=== PATIENT | female | born 1950 | race Caucasian/White ===

== ENCOUNTER 2019-07-24 22:16 | Inpatient (IN) | payer MEDICARE, OTHER ==
[~2019-07-24] VITALS: Ht 157.5 cm; Wt 105.5 kg
[~2019-07-24 22:16] MED LIST: ASPIR 8181 MG PO; ASPIRIN EC81 M1 PO; ATENOLOL 100MG100 MG PO; BENZONATATE100 MG PO; BIO CLEANSE PO; CEFDINIR300 MG PO; CENTRUM SILVER1 EAC4 PO; CHLORTHALIDONE25 MG PO; CLARITIN10 MG PO; COLACE100 MG PO; COREG6.25 MG PO; CRESTOR20 MG PO; KEFLEX500 M1 PO; LIPITOR 20 MG T20 M1 PO; LIPITOR10 MG PO; LISINOPRIL20 MG PO; LISINOPRIL40 MG PO; MACROBID 100 M100 M1 PO; MUCINEX TA600 MG/TA2 PO; MUCINEX1200 MG PO; NORVASC10 MG PO; NORVASC5 MG PO; ONDANSETRON HCL4 M2 PO; PEPCID20 MG PO; PLAVIX 75 MG TA75 M1 PO; PREDNISONE 10 M10 MG PO; PREDNISONE 20 M20 MG PO; PREDNISONE 5 MG5 M1 PO; PRILOSEC 20 MG20 MG PO; PROAIR HFA8.5 GM INH; PROBIOTIC1 EAC1 PO; PROBIOTIC1 EAC3 PO; PROTONIX40 M1 PO; SYSTANE 0.3-0.1 EACH OPHTHALMIC; TYLENOL325 MG PO; UNICOMPLEX M TA1 TA1 PO; VENTOLIN HFA 1818 GM INH; VITAMIN D-32000 UNIT PO; XANAX 0.25 MG0.25 MG PO; ZESTORETIC 20-1 EAC1 PO; ZPAK PO
[2019-07-24 22:24] VITALS: BP 119/49
[2019-07-24] MEDS ORDERED: ALLOPURINOL 30300 M1 PO (22:30)
[2019-07-24 23:18] LABS: BE -7.6 mmol/L (-2 to +3); PCO2 34.4 mmHg (35.0-45.0); PO2 84.7 mmHg (75.0-100.0); pH 7.324 (7.340-7.450)
[2019-07-24 23:20] LABS: ABSOLUTE BASOPHILS 0.1 thou/uL (0.0-0.2); ABSOLUTE EOSINOPHILS 0.4 thou/uL (0.0-0.7); ABSOLUTE LYMPHOCYTES 3.3 thou/uL (0.8-5.3); ABSOLUTE MONOCYTES 0.8 thou/uL (0.0-1.2); ABSOLUTE NEUTROPHILS 5.4 thou/uL (1.6-8.1); BASOPHILS 0.8 %; EOSINOPHILS 4.3 %; HEMATOCRIT 38.7 % (37.0-47.0); MCH 28.5 pg (26.0-34.0); MCHC 33.4 g/dL (28.0-37.0); MCV 85.1 fL (80.0-100.0); MPV 10.7 fl. (7.2-11.1); NUCLEATED RBCS 0 /100WBC; PLATELET COUNT* 216 thou/uL (150-400); POLYS 53.9 %; RBC 4.55 mil/uL (4.20-5.00); RDW-CV 16.9 % (10.5-14.5); WBC 9.9 thou/uL (4.0-11.0)
[2019-07-24 23:22] LABS: ANION GAP 15 mmol/L (7-16); BUN 33 mg/dL (7-18); CALCIUM 8.3 mg/dL (8.5-10.1); CHLORIDE 106 mmol/L (98-107); CO2 20 mmol/L (21-32); GLUCOSE 117 mg/dL (70-99); SODIUM 141 mmol/L (136-145)
[2019-07-24 23:23] LABS: INR 1.1; POTASSIUM 2.5 mmol/L (3.5-5.1); PROTIME 11.4 Seconds (9.20-11.50)
[2019-07-24 23:31] LABS: ALBUMIN 3.5 g/dL (3.4-5.0); ALKALINE PHOSPHATASE 114 U/L (46-116); SGOT 48 U/L (15-37); SGPT 77 U/L (30-65); TOTAL BILIRUBIN 0.6 mg/dL (<0.1-1.0); TOTAL PROTEIN 5.8 g/dL (6.4-8.2); TROPONIN-I LEVEL <0.06 ng/mL (<0.06)
[2019-07-24 23:36] LABS: MAGNESIUM 0.7 mg/dL (1.8-2.4)
--- NOTE | 2019-07-25 00:15 | NUR ---
RECIEVED REPORT AND ASSUMED CARE OF PT.
--- NOTE | 2019-07-25 02:20 | NUR ---
REPORT GIVEN TO HERACLIO MONTERO. PT BEING ADMITTED TO ROOM 204
[2019-07-25 02:22] VITALS: BP 102/50
[2019-07-25 04:00] VITALS: BP 91/43
--- NOTE | 2019-07-25 06:49 | NUR ---
PT ARRIVED FROM ER AROUND 0230. ASSESSMENT COMPLETED CHARTED. ABLE TO MAKE NEEDS KNOWN. UP WITH 1 AND CANE TO BATHROOM. ON ISOLATION FOR RECENT CDIFF. C/O CIATICA NERVE PAIN AND GAVE PRN PAIN MEDS. NO SKIN ISSUES NOTED. MEDS RECONSILED. IV FLUIDS RUNNING PER EMAR. WILL CONTINUE TO MONITOR.
[2019-07-25 08:50] VITALS: BP 131/43
--- NOTE | 2019-07-25 08:50 | NUR ---
PATIENT A/O X 4 THIS AM. PATIENT STATES SCIATIC NERVE PAIN IS SLIGHTLY IMPROVED THAN FIRST ADMITTED. 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 IV FLUIDS INFUSING ORDERED. FALL PRECAUTIONS IN PLACE. CALL LIGHT WITHIN REACH. WILL CONTINUE WITH PLAN OF CARE.
[2019-07-25 09:37] LABS: ABSOLUTE BASOPHILS 0.1 thou/uL (0.0-0.2); ABSOLUTE EOSINOPHILS 0.5 thou/uL (0.0-0.7); ABSOLUTE LYMPHOCYTES 3.6 thou/uL (0.8-5.3); ABSOLUTE MONOCYTES 0.8 thou/uL (0.0-1.2); ABSOLUTE NEUTROPHILS 4.7 thou/uL (1.6-8.1); BASOPHILS 0.7 %; EOSINOPHILS 5.1 %; HEMATOCRIT 38.2 % (37.0-47.0); HEMOGLOBIN 12.5 gm/dL (12.0-15.0); LYMPHOCYTES 37.4 %; MCH 28.2 pg (26.0-34.0); MCHC 32.7 g/dL (28.0-37.0); MCV 86.3 fL (80.0-100.0); MONOCYTES 8.3 %; MPV 11.7 fl. (7.2-11.1); NUCLEATED RBCS 0 /100WBC; PLATELET COUNT* 215 thou/uL (150-400); POLYS 48.5 %; RBC 4.43 mil/uL (4.20-5.00); RDW-CV 17.4 % (10.5-14.5); WBC 9.8 thou/uL (4.0-11.0)
[2019-07-25 09:45] LABS: ALBUMIN 3.2 g/dL (3.4-5.0); CREATININE 2.1 mg/dL (0.6-1.3); PHOSPHORUS* 3.8 mg/dL (2.5-4.9); POTASSIUM 3.2 mmol/L (3.5-5.1)
[2019-07-25 09:49] LABS: MAGNESIUM 0.9 mg/dL (1.8-2.4)
[2019-07-25 10:43] LABS: URINE BLOOD 2+ (Negative); URINE CLARITY CLEAR; URINE COLOR YELLOW; URINE GLUCOSE-RANDOM NEGATIVE (Negative); URINE KETONES NEGATIVE (Negative); URINE NITRITE-REFLEX NEGATIVE (Negative); URINE PROTEIN 1+ (Negative); URINE UROBILINOGEN 0.2 E.U./dl (0.2-1.0)
[2019-07-25 10:44] LABS: ICTOTEST (BILI CONFIRMATORY) Negative (Negative); URINE BILIRUBIN 1+ (Negative); URINE LEUKOCYTES-REFLEX 3+ (Negative)
[2019-07-25 10:49] LABS: BACTERIA-REFLEX >30 Many /HPF (None Seen); CRYSTALS None Seen /LPF (None Seen); HYALINE CASTS 0-3 Few /LPF (None Seen); MUCUS 0-3 Light strn/LPF (None Seen); SQUAMOUS 0-3 Few /LPF (0-3); URINE RBC 3-10 Few /HPF (0-2); URINE WBC-REFLEX >25 Many /HPF (0-5)
[2019-07-25 12:18] VITALS: BP 113/41
[2019-07-25 16:27] VITALS: BP 151/55
--- NOTE | 2019-07-25 18:41 | NUR ---
PATIENT HAS BEEN A/O X 4 THIS SHIFT. 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 IV FLUIDS CHANGED THIS SHIFT. IV PATENT, MAGNESIUM REPLACED PER ORDERS. PATIENT TOLERATING HEART HEALTHY DIET. PATIENT UP WITH SBA WITH CANE TO BR. UA SENT ORDERED, ORDERS RECEIVED TO SEND STOOL FOR STUDIES, PATIENT INFORMED. BP IMPROVED FROM ADMIT. LIDOCAINE PATCH ORDERED FOR SCIATIC NERVE PAIN. REMAINS IN SPECIAL CONTACT FOR HX OF CDIFF. HOURLY ROUNDING COMPLETED. CALL LIGHT WITHIN REACH. WILL CONTINUE WITH PLAN OF CARE.
[2019-07-25 20:00] VITALS: BP 133/54
[2019-07-26] VITALS: BP 134/57
[2019-07-26 03:45] VITALS: BP 112/38
[2019-07-26 05:11] LABS: CALCIUM 8.1 mg/dL (8.5-10.1); CREATININE 1.6 mg/dL (0.6-1.3); MAGNESIUM 2.2 mg/dL (1.8-2.4); POTASSIUM 3.9 mmol/L (3.5-5.1)
--- NOTE | 2019-07-26 05:20 | NUR ---
PT REPORTED AT BEGINNING OF SHIFT THAT SCIATIC PAIN WAS IMPROVING. AT 0300 ROUNDING PT REPORTED BLE PAIN R/T GOUT. PT GIVEN TRAMADOL AND UPON REASSESSMENT PT REPORTED PAIN 5/10. PT IS RESTING AT THIS TIME. CALL LIGHT WITH REACH
--- NOTE | 2019-07-26 07:35 | EKG ---
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 : 1950 Requested By: Cherry Friend Order Number: [id number] MD: Ki Jeffers Measurements Intervals [place] Rate: 71 P: 70 CT: 206 QRS: 16 QRSD: 111 T: -36 QT: 430 QTc: 468 Interpretive Statements Sinus rhythm LVH with IVCD and secondary repol abnrm Inferior infarct, age indeterminate No previous ECG available for comparison Electronically Signed On 07-26-2019 7:34:48 CDT by Ki Jeffers [email or web address] <ELECTRONICALLY SIGNED> By: Ki Jeffers MD, [facility] 07/26/19 0734 33 33 Ki Jeffers MD, [facility] /EPI
[2019-07-26 08:00] VITALS: BP 153/76
[2019-07-26 12:20] VITALS: BP 131/46
[2019-07-26 16:16] VITALS: BP 139/46
--- NOTE | 2019-07-26 16:32 | NUR ---
PT UP IN ROOM AND TO BR WITH SB ASSIST AND CANE. IVF INFUSING. NSR ON MONITOR. TOLERATING PO WELL
[2019-07-26 20:00] VITALS: BP 157/54
[2019-07-27] VITALS: BP 144/55
[2019-07-27 04:00] VITALS: BP 167/64
[2019-07-27 04:34] LABS: CALCIUM 8.6 mg/dL (8.5-10.1); CREATININE 1.2 mg/dL (0.6-1.3); POTASSIUM 3.8 mmol/L (3.5-5.1)
--- NOTE | 2019-07-27 06:13 | NUR ---
PT HAS RESTED T/O NIGHT WITH NO CO PAIN OR SOA. PT HAS STILL NOT HAD A BM,SPECIMEN REMAINS UNCOLLECTED. IV TO LEFT HAND INFUSING 1/2 NS AT 75. NOTHING FURTHER AT THIS TIME. CALL LIGHT WITHIN REACH.
[2019-07-27 09:33] VITALS: BP 194/62
--- NOTE | 2019-07-27 10:24 | NUR ---
cm completed intial assessment. pt alert &oriented x 4. pt lives at home alone. independent w/cares. drives. employeed. dtr provides needed support. pt has cane and walker (PRN). pt has w/[facility] acute rehab and HH w/[facility]. pt would like to use [facility] if it is determined pt w/need HH services. cm to cont to remain avialable to assist as needed.
[2019-07-27] MEDS ORDERED: CIPRO500 MG PO (11:10)
[2019-07-27] MEDS ORDERED: PREDNISONE 20 M20 MG PO (11:11)
[2019-07-27] MEDS ORDERED: LISINOPRIL40 MG PO (11:11)
[2019-07-27] MEDS ORDERED: PEPCID20 MG PO (11:12)
[2019-07-27 11:28] VITALS: BP 194/62
[2019-07-27 11:46] VITALS: BP 158/59
--- NOTE | 2019-07-27 13:26 | NUR ---
Nutrition: Consult for wt change. Pt stated she usually weighs 219# now. She has lost ~50# in past two months d/t a c. diff infection. She stated she feels she is not losing wt anymore. She takes vitamin D, MVI, probiotic. 100% of lunch eaten. She stated she has a good appetite. Plan to discharge today. Mild risk.
--- NOTE | 2019-07-27 14:17 | NUR ---
PATIENT DISCHARGED TO HOME WITH HH AT THIS TIME. IV DC'D. PATIENT VERBALIZES UNDERSTANDING OF PAPERWORK AND SCRIPTS. PATIENT TAKEN OUT VIA WHEELCHAIR WITH ALL BELONGINGS.
[2019-07-28 03:07] LABS: GLYCOHEMOGLOBIN (HGB A1C) 5.7 % (4.8-5.6)
== END 2019-07-27 14:24 | disposition home health service (06) | DRG 683 ==
LOC: M.ERS 22:16 → M.2W 07-25 00:14 → M.TBA-ER 07-25 00:14 → M.2W 07-25 02:04
PROVIDERS: Personal Emergency Response Attendant; ADMIT Family Medicine
DX: N17.9 Acute kidney failure, unspecified (principal); Z68.41 Body mass index [BMI] 40.0-44.9, adult; N39.0 Urinary tract infection, site not specified; I12.9 Hypertensive chronic kidney disease with stage 1 through stage 4 chronic kidney disease, or unspecified chronic kidney disease; Z96.1 Presence of intraocular lens; E78.00 Pure hypercholesterolemia, unspecified; I73.9 Peripheral vascular disease, unspecified; E78.5 Hyperlipidemia, unspecified; E86.0 Dehydration; N18.3 Chronic kidney disease, stage 3 (moderate); I25.10 Atherosclerotic heart disease of native coronary artery without angina pectoris; M54.30 Sciatica, unspecified side; E87.6 Hypokalemia; M10.9 Gout, unspecified; E83.42 Hypomagnesemia; F41.9 Anxiety disorder, unspecified; E66.9 Obesity, unspecified; K21.9 Gastro-esophageal reflux disease without esophagitis; I25.2 Old myocardial infarction; Z95.1 Presence of aortocoronary bypass graft; Z86.73 Personal history of transient ischemic attack (TIA), and cerebral infarction without residual deficits; Z79.82 Long term (current) use of aspirin; Z88.0 Allergy status to penicillin; Z88.8 Allergy status to other drugs, medicaments and biological substances; Z88.1 Allergy status to other antibiotic agents; Z79.899 Other long term (current) drug therapy

== ENCOUNTER 2019-08-04 14:29 | Emergency (ER) | payer MEDICARE, OTHER ==
[~2019-08-04] VITALS: Ht 157.5 cm; Wt 98.9 kg
[~2019-08-04 14:29] MED LIST changes: +ALLOPURINOL 30300 M1 PO; +CIPRO500 MG PO
[2019-08-04 15:03] LABS: ABSOLUTE EOSINOPHILS 0.5 thou/uL (0.0-0.7); ABSOLUTE LYMPHOCYTES 3.7 thou/uL (0.8-5.3); ABSOLUTE NEUTROPHILS 7.2 thou/uL (1.6-8.1); BASOPHILS 0.3 %; EOSINOPHILS 3.7 %; HEMATOCRIT 39.2 % (37.0-47.0); HEMOGLOBIN 12.7 gm/dL (12.0-15.0); LYMPHOCYTES 29.8 %; MCH 28.3 pg (26.0-34.0); MCHC 32.5 g/dL (28.0-37.0); MCV 87.1 fL (80.0-100.0); MONOCYTES 8.1 %; MPV 9.3 fl. (7.2-11.1); NUCLEATED RBCS 0 /100WBC; PLATELET COUNT* 248 thou/uL (150-400); POLYS 58.1 %; RDW-CV 18.4 % (10.5-14.5); WBC 12.5 thou/uL (4.0-11.0)
[2019-08-04 15:06] LABS: ANION GAP 5 mmol/L (7-16); BUN 17 mg/dL (7-18); CALCIUM 8.9 mg/dL (8.5-10.1); CHLORIDE 103 mmol/L (98-107); CO2 32 mmol/L (21-32); CREATININE 0.9 mg/dL (0.6-1.3); GLUCOSE 87 mg/dL (70-99); POTASSIUM 4.1 mmol/L (3.5-5.1); SODIUM 140 mmol/L (136-145)
[2019-08-04 15:16] LABS: ALBUMIN 2.9 g/dL (3.4-5.0); ALKALINE PHOSPHATASE 89 U/L (46-116); NT-PRO BRAIN NAT PEPTIDE 3931 pg/mL (<300); SGOT 17 U/L (15-37); SGPT 51 U/L (30-65); TOTAL PROTEIN 5.3 g/dL (6.4-8.2); TROPONIN-I LEVEL <0.06 ng/mL (<0.06)
[2019-08-04 15:43] LABS: URINE BILIRUBIN NEGATIVE (Negative); URINE BLOOD NEGATIVE (Negative); URINE CLARITY CLEAR; URINE COLOR YELLOW; URINE GLUCOSE-RANDOM NEGATIVE (Negative); URINE KETONES NEGATIVE (Negative); URINE LEUKOCYTES-REFLEX NEGATIVE (Negative); URINE NITRITE-REFLEX NEGATIVE (Negative); URINE PROTEIN NEGATIVE (Negative); URINE SPECIFIC GRAVITY <= 1.005 (1.005-1.030); URINE UROBILINOGEN 0.2 E.U./dl (0.2-1.0)
[2019-08-04] MEDS ORDERED: LASIX 20 MG TAB20 MG PO (16:04)
[2019-08-04 16:18] VITALS: BP 174/52
== END 2019-08-04 16:18 | disposition home or self-care (01) ==
LOC: M.ERS 14:29
PROVIDERS: Physician Assistant
DX: I11.0 Hypertensive heart disease with heart failure (principal); I50.9 Heart failure, unspecified; R60.0 Localized edema; E78.00 Pure hypercholesterolemia, unspecified; I25.2 Old myocardial infarction; F41.9 Anxiety disorder, unspecified; K21.9 Gastro-esophageal reflux disease without esophagitis; Z86.73 Personal history of transient ischemic attack (TIA), and cerebral infarction without residual deficits; Z98.890 Other specified postprocedural states; Z95.1 Presence of aortocoronary bypass graft; Z88.1 Allergy status to other antibiotic agents; Z88.0 Allergy status to penicillin; Z88.5 Allergy status to narcotic agent; Z87.891 Personal history of nicotine dependence

== ENCOUNTER 2019-08-20 17:18 | Emergency (ER) | payer MEDICARE, OTHER ==
[~2019-08-20] VITALS: Ht 157.5 cm; Wt 98.9 kg
[~2019-08-20 17:18] MED LIST changes: +LASIX 20 MG TAB20 MG PO
[2019-08-20] MEDS ORDERED: MAGOX 400400 MG PO (17:32)
[2019-08-20] MEDS ORDERED: POTASSIUM20 PO (17:32)
[2019-08-20] MEDS ORDERED: GABAPENTIN 100100 MG PO (17:48)
[2019-08-20] MEDS ORDERED: TRAMADOL 50 MG50 MG PO (17:48)
[2019-08-20 18:00] VITALS: BP 125/80
== END 2019-08-20 18:01 | disposition home or self-care (01) ==
LOC: M.ERS 17:18
DX: G62.9 Polyneuropathy, unspecified (principal); I10 Essential (primary) hypertension; I73.9 Peripheral vascular disease, unspecified; E78.00 Pure hypercholesterolemia, unspecified; K21.9 Gastro-esophageal reflux disease without esophagitis; F41.9 Anxiety disorder, unspecified; Z86.73 Personal history of transient ischemic attack (TIA), and cerebral infarction without residual deficits; Z88.0 Allergy status to penicillin; Z88.6 Allergy status to analgesic agent; Z88.1 Allergy status to other antibiotic agents; Z87.891 Personal history of nicotine dependence

== ENCOUNTER 2019-08-25 22:08 | Inpatient (IN) | payer MEDICARE, OTHER ==
[~2019-08-25] VITALS: Ht 157.5 cm; Wt 100.2 kg
[~2019-08-25 22:08] MED LIST changes: +GABAPENTIN 100100 MG PO; +MAGOX 400400 MG PO; +POTASSIUM20 PO; +TRAMADOL 50 MG50 MG PO
[2019-08-25 22:19] VITALS: BP 148/51
[2019-08-25 22:58] LABS: HEMATOCRIT 37.2 % (37.0-47.0); HEMOGLOBIN 12.4 gm/dL (12.0-15.0); MCH 28.9 pg (26.0-34.0); MCHC 33.3 g/dL (28.0-37.0); MCV 86.8 fL (80.0-100.0); MPV 8.9 fl. (7.2-11.1); NUCLEATED RBCS 0 /100WBC; PLATELET COUNT* 384 thou/uL (150-400); RBC 4.29 mil/uL (4.20-5.00); RDW-CV 18.8 % (10.5-14.5); WBC 14.4 thou/uL (4.0-11.0)
[2019-08-25 23:06] LABS: ANION GAP 9 mmol/L (7-16); BUN 41 mg/dL (7-18); CALCIUM 9.5 mg/dL (8.5-10.1); CHLORIDE 94 mmol/L (98-107); CO2 31 mmol/L (21-32); CREATININE 2.4 mg/dL (0.6-1.3); GLUCOSE 143 mg/dL (70-99); POTASSIUM 4.1 mmol/L (3.5-5.1); SODIUM 134 mmol/L (136-145)
--- NOTE | 2019-08-25 23:16 | NUR ---
PT VERBALIZES UNDERSTANDING OF PRESCRIPTIONS AND DISCHARGE INSTRUCTIONS. PT DISCHARGED TO HOME IN STABLE CONDITION WITH DRIVING.
[2019-08-25 23:18] LABS: ALBUMIN 3.1 g/dL (3.4-5.0); ALKALINE PHOSPHATASE 161 U/L (46-116); NT-PRO BRAIN NAT PEPTIDE 3453 pg/mL (<300); SGOT 16 U/L (15-37); SGPT 27 U/L (30-65); TOTAL BILIRUBIN 0.5 mg/dL (<0.1-1.0); TOTAL PROTEIN 6.2 g/dL (6.4-8.2); TROPONIN-I LEVEL <0.06 ng/mL (<0.06); URIC ACID* 7.5 mg/dL (2.6-7.2)
[2019-08-25 23:47] LABS: URINE BILIRUBIN NEGATIVE (Negative); URINE BLOOD NEGATIVE (Negative); URINE CLARITY CLEAR; URINE COLOR YELLOW; URINE GLUCOSE-RANDOM NEGATIVE (Negative); URINE KETONES NEGATIVE (Negative); URINE LEUKOCYTES-REFLEX 1+ (Negative); URINE NITRITE-REFLEX NEGATIVE (Negative); URINE PROTEIN NEGATIVE (Negative); URINE SPECIFIC GRAVITY 1.015 (1.005-1.030); URINE UROBILINOGEN 0.2 E.U./dl (0.2-1.0)
[2019-08-25 23:52] LABS: ABSOLUTE BASOPHILS 0.1 thou/uL (0.0-0.2); ABSOLUTE LYMPHOCYTES 3.9 thou/uL (0.8-5.3); ABSOLUTE NEUTROPHILS 7.3 thou/uL (1.6-8.1); ATYPICAL LYMPHS 2 %; PLATELET ESTIMATE ADEQUATE; TOXIC GRANULATION 1+
[2019-08-25 23:53] LABS: ANISOCYTOSIS Occasional
[2019-08-25 23:58] LABS: BACTERIA-REFLEX >30 Many /HPF (None Seen); CRYSTALS None Seen /LPF (None Seen); FINE GRANULAR CASTS 0-3 Few /LPF (None Seen); HYALINE CASTS 0-3 Few /LPF (None Seen); MUCUS 4-6 Moderate strn/LPF (None Seen); RENAL EPITHELIAL CELLS 0-3 Few /LPF (None Seen); SQUAMOUS 0-3 Few /LPF (0-3); TRANSITIONAL EPITHEL CELL 0-3 Few /LPF (None Seen); URINE RBC 3-10 Few /HPF (0-2); URINE WBC-REFLEX >25 Many /HPF (0-5); WBC CLUMPS Moderate (None Seen)
[2019-08-26 00:13] LABS: AMP/METHAMP Negative (Negative); BARBITURATES Negative (Negative); BENZODIAZEPINES Negative (Negative); COCAINE Negative (Negative); METHADONE Negative (Negative); OPIATES Negative (Negative); PCP Negative (Negative); THC Negative (Negative)
--- NOTE | 2019-08-26 01:02 | NUR ---
REPORT GIVEN TO YAIR MONTERO. PT BEING TRANSPORTED TO ROOM 310.
[2019-08-26 01:10] VITALS: BP 125/60
[2019-08-26 01:24] VITALS: BP 138/57
--- NOTE | 2019-08-26 02:30 | NUR ---
PT ADMITTED TO ROOM 310 FRM ER @ 0110. ALERT AND ORIENTED. ADMISSION HX AND ASSESSMENT DOCUMENTED. FALL RISK. FALL PRECAUTION IN PLACE. CALL LIGHT WITHIN REACH. WILL CONTINUE TO MONITOR.
[2019-08-26 04:01] LABS: HEMATOCRIT 36.1 % (37.0-47.0); HEMOGLOBIN 11.9 gm/dL (12.0-15.0); MCH 28.6 pg (26.0-34.0); MCHC 33.1 g/dL (28.0-37.0); MCV 86.5 fL (80.0-100.0); MPV 9.4 fl. (7.2-11.1); RBC 4.17 mil/uL (4.20-5.00); RDW-CV 18.3 % (10.5-14.5); WBC 15.4 thou/uL (4.0-11.0)
[2019-08-26 04:23] LABS: ALBUMIN 2.9 g/dL (3.4-5.0); POTASSIUM 4.7 mmol/L (3.5-5.1); TOTAL BILIRUBIN 0.5 mg/dL (<0.1-1.0); TOTAL PROTEIN 6.1 g/dL (6.4-8.2)
--- NOTE | 2019-08-26 05:38 | NUR ---
PT ALERT AND ORIENTED. VSS ON 2L NC. ASSESSMENT DOCUMENTED. RH IV WITH NS @ 80. PT SLEPT MOST OF SHIFT. FALL PRECAUTION IN PLACE. PT AMBULATES WITH A CANE ON STANDBY. TECH OFFER PT A WAKER FOR BETTER SUPPORT DURING AMBULATION, PT REFUSED. CALL LIGHT WITHIN REACH. HOURLY ROUNDINGS MADE. WILL CONTINUE TO MONITOR.
[2019-08-26 12:23] LABS: CALCIUM 9.4 mg/dL (8.5-10.1); CREATININE 1.9 mg/dL (0.6-1.3); POTASSIUM 4.2 mmol/L (3.5-5.1)
--- NOTE | 2019-08-26 13:37 | 2DMMODE ---
[place] [address] 2 D/M-MODE ECHOCARDIOGRAM Name: TATUMEKTA JODIE Room: [address] IN [facility]#: [id number] Admission: 08/26/19 Attend Phys: Vidya Olivares, Discharge: Date of : 46 Date of Service: 08/26/19 1337 Report #: [id number] THIS REPORT FOR: //name// APPROVED REPORT Study performed: 08/26/2019 11:36:11 EXAM: Comprehensive 2D, Doppler, and color-flow Echocardiogram Patient Location: In-Patient Room #: 310 Status: routine BSA: 1.99 HR: 97 bpm BP: 138/57 mmHg Rhythm: NSR Other Information Study Quality: Good Indications Aortic Valve Disease CAD RULE OUT HEART FAILURE 2D Dimensions IVSd: 16.86 (7-11mm) LVOT Diam: 19.06 (18-24mm) LVDd: 37.33 mm PWd: 13.88 (7-11mm) Ascending Ao: 30.25 (22-36mm) LVDs: 26.51 (25-40mm) Volumes Left Atrial Volume (Systole) LA ESV Index: 29.70 mL/m2 Aortic Valve AoV Peak Seferino.: 2.85 m/s AO Peak Gr.: 32.44 mmHg LVOT Max P.57 mmHg AO Mean Gr.: 19.07 mmHg LVOT Mean P.37 mmHg LVOT Max V: 1.07 m/s AO V2 VTI: 58.85 cm LVOT Mean V: 0.71 m/s KEVIN (VTI): 1.20 cm2 LVOT V1 VTI: 24.70 cm Mitral Valve MV Decel. Time: 118.02 ms MV PHT: 34.22 [place] [address] 2 D/M-MODE ECHOCARDIOGRAM Name: EKTA WINN Room: [address] IN [facility]#: [id number] Admission: 08/26/19 Attend Phys: Vidya Olivares, Discharge: Date of : 46 Date of Service: 08/26/19 1337 Report #: [id number] MVA (PHT): 6.43 cm2 TDI Lateral E' Seferino.: 0.10 m/s Pulmonary Valve PV Peak Seferino.: 1.71 m/s PV Peak Gr.: 11.67 mmHg Tricuspid Valve RAP Estimate: 5.00 mmHg TR Peak Gr.: 28.75 mmHg RVSP: 33.00 mmHg PA Pressure: 33.00 mmHg Left Ventricle The left ventricle is normal size. There is normal LV segmental wall motion. Moderate concentric left ventricular hypertrophy. Left ventricular systolic function is normal. LVEF is 60-65%. Transmitral Doppler flow pattern suggests impaired LV relaxation. Right Ventricle The right ventricle is normal size. The right ventricular systolic function is normal. Atria Left atrium is moderately dilated. Right atrium is moderately dilated. Aortic Valve Aortic valve leaflets are moderately thickened. No aortic regurgitation is present. Moderate aortic stenosis. Mitral Valve There is mitral annular calcification. There is no mitral valve regurgitation noted. No evidence of mitral valve stenosis. Tricuspid Valve The tricuspid valve is normal in structure. Mild tricuspid regurgitation. Mild pulmonary hypertension. Pulmonic Valve The pulmonary valve is normal in structure. Trace pulmonic regurgitation. Great Vessels The aortic root is normal in size. IVC is normal in size and collapses >50% [place] [address] 2 D/M-MODE ECHOCARDIOGRAM Name: EKTA WINN Room: [address] IN .R.#: [id number] Admission: 08/26/19 Attend Phys: Vidya Olivares, Discharge: Date of : 46 Date of Service: 08/26/19 1337 Report #: [id number] Pericardium There is no pericardial effusion. <Conclusion> The left ventricle is normal size. Moderate concentric left ventricular hypertrophy. Left ventricular systolic function is normal. LVEF is 60-65%. Transmitral Doppler flow pattern suggests impaired LV relaxation. Left atrium is moderately dilated. Right atrium is moderately dilated. Aortic valve leaflets are moderately thickened. Moderate aortic stenosis. Mild tricuspid regurgitation. Mild pulmonary hypertension. IVC is normal in size and collapses >50% with inspiration. <ELECTRONICALLY SIGNED> By: Wagner Childers MD, FACC 08/26/191336 36 36 Wagner Childers MD, FACC /INF
[2019-08-26 17:04] VITALS: BP 138/57
--- NOTE | 2019-08-26 17:07 | NUR ---
SW met with pt to complete initial assessment, introduce self, and SW role. Pt alert, oriented. Pt lives at home alone. Pt has susanna, RW, hx of [facility], and hx of [facility] inpt rehab. Pt does not anticipate any dc needs at this time and does not have any questions or concerns. SW to continue to follow to assist with safe dc planning.
--- NOTE | 2019-08-26 17:19 | EKG ---
[place] [address] ELECTROCARDIOGRAM REPORT Name: EKTA WINN Room: [address] ADM IN M.R.#: [id number] Admission: 08/26/19 Attend Phys: Vidya Olivares MD Discharge: Date of : 46 Report #: [id number] THIS REPORT FOR: //name// [facility] ED Test Date: 2019-08-25 Test Time: 22:52:34 Pat Name: EKTA WINN Department: Room: 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 : 1950 Requested By: Christianne Barbosa Order Number: [id number] MD: Wagner Childers Measurements Intervals [place] Rate: 101 P: 84 NM: 205 QRS: 21 QRSD: 101 T: 185 QT: 332 QTc: 431 Interpretive Statements Sinus tachycardia LVH with secondary repolarization abnormality Inferior infarct, old Anterior infarct, old Baseline wander in lead(s) V2 Compared to ECG 07/24/2019 22:34:54 Sinus rhythm no longer present Myocardial infarct finding still present Electronically Signed On 08-26-2019 17:19:02 CDT by Wagner Childers [email or web address] <ELECTRONICALLY SIGNED> By: Wagner Childers MD, FACC 08/26/19 1719 51 51 Wagner Childers MD, FACC /EPI
--- NOTE | 2019-08-26 17:21 | NUR ---
PT AWARE OF PLANNED DC TO HOME IN THE AM. ECHO RESULTS REPORTED TO DR. DOLL. CARDIO CONSULT ORDERED AND ROUNDED ON PT, WILL F/U OUTPATIENT. DR. DOLL NOTIFIED OF BMP RESULTS. ACCUCHECKS ORDERED PER PHYSICIAN. IV FLUIDS CONTINUED. PT INSTRUCTED REGARDING TOPICAL CREAM TO ADDRESS DISCOMFORT IN FEET. FLU SHOT ADMINISTERED ORDERED. PT DENIES PAIN AT THIS TIME. PT CONTINUES TO REST IN ROOM WITH CALL LIGHT IN REACH.
[2019-08-26 17:24] VITALS: BP 137/56
[2019-08-26 19:50] VITALS: BP 124/52
[2019-08-26 23:07] LABS: GLYCOHEMOGLOBIN (HGB A1C) 5.7 % (4.8-5.6)
--- NOTE | 2019-08-27 05:07 | NUR ---
PT ALERT AND ORIENTED. VSS ON RA. ASSESSMENT DOCUMENTED. RH IV WITH NS @80. PT SLEPT MOST OF SHIFT. MEDS GIVEN PER EMAR. RELIEF NOTED WITH USE ON TOPICAL PAIN MED. CALL LIGHT WITHIN REACH. HOURLY ROUDINGS MADE. ANTICIPATED DC TODAY. WILL CONTINUE TO MONITOR.
[2019-08-27 08:38] VITALS: BP 153/58
[2019-08-27 09:09] LABS: CALCIUM 9.4 mg/dL (8.5-10.1); CREATININE 1.3 mg/dL (0.6-1.3)
[2019-08-27] MEDS ORDERED: CIPRO250 M1 PO (09:17)
--- NOTE | 2019-08-27 09:45 | NUR ---
PT ANXIOUS TO LEAVE HOSPITAL WITH DGTER AT THIS TIME. DR DOLL ORDERED NEPH CONSULT WELL STAT BMP. LABS DRAWN PRIOR TO PT DC FROM HOSP. PT GIVEN F/U INFO BY NEPHROLOGY. DGTR PRESENT AT TIME OF DC EDUCATION. PT VERBALIZES UNDERSTANDING OF DC INSTRUCTIONS, F/U AND RX PROVIDED. RX CALLED INTO [facility] PER PT REQUEST. IV DC WITH NO REDNESS, SWELLING OR BLEEDING. PT LEFT DEPT IN WC W/ ALL PERSONAL BELONGINGS.
== END 2019-08-27 09:45 | disposition home or self-care (01) | DRG 682 ==
LOC: M.ERS 22:08 → M.3W 08-26 00:01 → M.TBA-ER 08-26 00:01 → M.3W 08-26 01:13
PROVIDERS: Internal Medicine; Nurse Practitioner Family; ADMIT Internal Medicine
DX: N17.0 Acute kidney failure with tubular necrosis (principal); R65.11 Systemic inflammatory response syndrome (SIRS) of non-infectious origin with acute organ dysfunction; N30.00 Acute cystitis without hematuria; I73.9 Peripheral vascular disease, unspecified; E78.00 Pure hypercholesterolemia, unspecified; K21.9 Gastro-esophageal reflux disease without esophagitis; I35.0 Nonrheumatic aortic (valve) stenosis; E78.5 Hyperlipidemia, unspecified; M10.9 Gout, unspecified; I12.9 Hypertensive chronic kidney disease with stage 1 through stage 4 chronic kidney disease, or unspecified chronic kidney disease; N18.9 Chronic kidney disease, unspecified; Z23 Encounter for immunization; Z86.73 Personal history of transient ischemic attack (TIA), and cerebral infarction without residual deficits; Z95.1 Presence of aortocoronary bypass graft; I25.2 Old myocardial infarction; Z88.6 Allergy status to analgesic agent; Z88.1 Allergy status to other antibiotic agents; Z88.0 Allergy status to penicillin; Z87.891 Personal history of nicotine dependence

== ENCOUNTER → 2019-10-11 | Outpatient (CLI) | payer MEDICARE, OTHER ==
[~2019-10-11] MED LIST changes: +CIPRO250 M1 PO
[2019-10-11 15:55] LABS: CALCIUM 9.1 mg/dL (8.5-10.1); CREATININE 0.8 mg/dL (0.6-1.3)
== END ==
LOC: M.LAB 15:28
PROVIDERS: Registered Nurse
DX: I73.9 Peripheral vascular disease, unspecified (principal)